=== PATIENT | female | born 1990 | race Caucasian/White ===

== ENCOUNTER → 2017-02-13 | Outpatient (CLI) | payer OTHER | END | disposition home or self-care (01) | LOC: LAB 12:19 | PROVIDERS: ATTEND Preventive Medicine Preventive Medicine/Occupational Environmental Medicine | DX: Z02.1 Encounter for pre-employment examination (principal) | CPT/HCPCS: 36415; 86706; 86735; 86765 ==

== ENCOUNTER → 2018-07-27 | Outpatient (CLI) | payer BC ==
[2018-07-27 08:50] LABS: Basophils # (auto) 0 uL; Basophils % (auto) 0.5 % (0.0-2.0); Eosinophils # (auto) 0 uL; Eosinophils % (auto) 0.3 % (0.0-7.0); Hematocrit 39.7 % (36.0-46.0); Hemoglobin 13.4 g/dL (12.2-16.2); Lymphocytes # (auto) 2.1 uL; Lymphocytes % (auto) 35.6 % (10.0-50.0); Mean Corpuscular Hemoglobin 31.2 pg (28.0-32.0); Mean Corpuscular Hgb Conc. 33.8 g/dL (32.0-36.0); Mean Corpuscular Volume 92.5 fL (80.0-100.0); Monocytes # (auto) 0.4 uL; Monocytes % (auto) 6.3 % (0.0-12.0); Neutrophils # (auto) 3.4 uL; Neutrophils % (auto) 57.3 % (37.0-80.0); Nucleated Red Blood Cells % 0.1 %; Platelet Count (auto) 292 10^3/uL (140-450); Red Blood Cells 4.29 10^6/uL (4.0-5.20); Red Cell Distribution Width 12.9 % (11.8-14.3)
[2018-07-27 09:17] LABS: Albumin 3.8 g/dL (3.4-5.0)
[2018-07-27 09:19] LABS: Potassium 3.8 mmol/L (3.5-5.1)
[2018-07-27 09:24] LABS: BUN/Creatinine Ratio 14.3; Bilirubin, Total 0.5 mg/dL (0.2-1.0); Calcium 8.7 mg/dL (8.5-10.1); Total Protein 7.5 g/dL (6.4-8.2)
== END | disposition home or self-care (01) ==
LOC: LAB 07:46
PROVIDERS: ATTEND Internal Medicine
DX: Z00.01 Encounter for general adult medical examination with abnormal findings (principal); R53.83 Other fatigue
CPT/HCPCS: 36415; 80053; 80061; 84439; 84443; 85025; 85652; 86704; 86705; 86706; 87340

== ENCOUNTER → 2018-11-30 | Outpatient (CLI) | payer BC | END | disposition home or self-care (01) | LOC: LAB 11:33 | PROVIDERS: ATTEND Specialist | DX: N91.2 Amenorrhea, unspecified (principal) | CPT/HCPCS: 36415; 84702 ==